=== PATIENT | male | born 1950 | race Caucasian/White ===

== ENCOUNTER 2025-04-21 10:34 | Emergency (ER) | payer MEDICARE, SELFPAY ==
[~2025-04-21] VITALS: Ht 177.8 cm; Wt 79.7 kg
[2025-04-21] MEDS: DERMABOND TOPICAL SKIN ADHESIVE TOP ONE (12:10)
[2025-04-21] MEDS: TETANUS/DIPHTH/ACEL. PERTUSSIS 0.5 ML SYR IM.IMMUN ONE (12:27)
[2025-04-21 12:57] VITALS: BP 142/78; TEMP 97.1; O2SAT 94
== END 2025-04-21 12:57 | disposition home or self-care (01) ==
LOC: M ED 10:34
DX: S61.211A Laceration without foreign body of left index finger without damage to nail, initial encounter (principal); W31.2XXA Contact with powered woodworking and forming machines, initial encounter; Y92.89 Other specified places as the place of occurrence of the external cause; Y93.89 Activity, other specified; Y99.0 Civilian activity done for income or pay; Z23 Encounter for immunization